=== PATIENT | male | born 1970 | race Caucasian/White ===

== ENCOUNTER 2019-08-06 11:01 | Outpatient (CLI) | payer OTHER ==
--- NOTE | 2019-08-06 14:30 | MRI ---
MRI OF THE LEFT KNEE WITHOUT CONTRAST: 08/06/19 INDICATION: History of left knee pain since August 2018; history of injury in August 2018. COMPARISON: Radiographs of the left knee dated 07/29/19. FINDINGS: There is susceptibility artifact from screws present within the distal femur proximal tibia likely re lated to a prior ACL reconstruction. The susceptibility artifact slightly limits image detail on the examination. There is a horizontal oblique tear involving the body, posterior horn and posterior root of the media l meniscus with partial medial extrusion. There is a horizontally oriented tear involving the body an d posterior junction of the lateral meniscus. The ACL graft, PCL, MCL, and LCLC appear intact. The extensor mechanism appears intact. There are small marginal osteophytes affecting all major compartments of the left knee. There is mild diffuse chondral thinning involving both femorotibial compartments without a definite full thickness defect. No definite full thickness defect is evident. Within the patellofemoral compartment, there is a near full thickness articular cartilage fissure involving the median patellar facet on image 25 of series measuring 1.4 mm. IMPRESSION: 1. Postprocedural change consistent with prior ACL reconstruction. 2. Medial and lateral meniscal tears. 3. Mild osteoarthrosis of the left knee. POS: [facility]
== END 2019-08-06 11:02 | disposition home or self-care (01) ==
LOC: SCSMRI 11:01
PROVIDERS: ATTEND Orthopaedic Surgery
DX: S83.242A Other tear of medial meniscus, current injury, left knee, initial encounter (principal); M17.12 Unilateral primary osteoarthritis, left knee; S83.282A Other tear of lateral meniscus, current injury, left knee, initial encounter; Z98.890 Other specified postprocedural states

== ENCOUNTER 2019-08-26 06:23 | Outpatient (CLI) | payer OTHER ==
[2019-08-26 16:35] LABS: #Basophils 0.1 thou/uL (0.0-0.2); #Eosinphils 0.2 thou/uL (0.0-0.7); #Lymphocytes 2.5 thou/uL (1.20-3.40); #Monocytes 0.3 thou/uL (0.11-0.59); #Neutrophils 2.9 thou/uL (1.40-6.50); %Basophils 0.9 % (0.0-1.0); %Lymphocytes 42.1 % (21.0-51.0); %Monocytes 5.5 % (0.0-10.0); %Neutrophils 48.4 % (42.0-75.0); Hemoglobin 14.3 g/dL (14.0-18.0); Mean Corpuscular HGB CONC 33.7 g/dL (32.0-36.0); Mean Corpuscular Hemoglobin 29.5 pg (27.0-31.0); Mean Corpuscular Volume 87.5 fL (78.0-98.0); Mean Platelet Volume 8.9 fL (7.4-10.4); Platelet Count 217 thou/uL (130-400); RBC Distribution Width 11.9 % (11.5-14.5); Red Blood Cell (RBC) Count 4.84 mill/uL (4.70-6.10); White Blood Cell (WBC) Count 5.9 thou/uL (4.8-10.8)
[2019-08-26 17:21] LABS: Anion Gap 12 mmol/L (10-20); BUN (Urea Nitrogen) 11 mg/dL (8.9-20.6); Calc. Creatinine Clearance 0 mL/min (70-130); Calcium 9.1 mg/dL (7.8-10.44); Carbon Dioxide 25 mmol/L (22-29); Chloride 106 mmol/L (98-107); Estimated GFR-MDRD 67; Glucose 88 mg/dL (70-105); Sodium 139 mmol/L (136-145)
[2019-08-27 13:11] LABS: SARS-CoV-2 MS2 Positive; SARS-CoV-2 N Gene Negative; SARS-CoV-2 S Gene Negative; SARS-CoV-2 orf1ab Negative
== END 2019-08-26 06:24 | disposition home or self-care (01) ==
LOC: LABBT 06:23
PROVIDERS: ATTEND Orthopaedic Surgery
DX: Z01.818 Encounter for other preprocedural examination (principal); Z11.59 Encounter for screening for other viral diseases; S83.207A Unspecified tear of unspecified meniscus, current injury, left knee, initial encounter
CPT/HCPCS: 80048; 85025; 87635; U0003

== ENCOUNTER 2019-08-30 11:22 | Day surgery (SDC) | payer OTHER ==
[2019-08-23 11:22] VITALS: BMI 33.3
[2019-08-30] MEDS ORDERED: Fentanyl 100 MCG/2 ML VIAL ONE (11:32)
[2019-08-30] MEDS ORDERED: PROPOFOL 20 ML ONE (11:56)
[2019-08-30] MEDS ORDERED: Bupivacaine PF 0.5% 30 ML VIAL ONE (12:10)
[2019-08-30] MEDS ORDERED: Lidocaine 2% w/Epinephrine 1:200K 20 ML VIAL ONE (12:10)
[2019-08-30] MEDS ORDERED: PROPOFOL 200 MG/20 ML VIAL ONE (12:38)
[2019-08-30] MEDS ORDERED: Dexamethasone 20 MG/5 ML VIAL ONE (12:38)
[2019-08-30] MEDS ORDERED: Ondansetron PF 4 MG/2 ML Vial ONE (12:38)
[2019-08-30] MEDS ORDERED: Ketorolac Tromethamine 30 MG/ML VIAL ONE (12:38)
[2019-08-30] MEDS ORDERED: Lidocaine 1% PF 5 ML VIAL ONE (12:38)
--- NOTE | 2019-08-30 21:28 | OP ---
DATE OF PROCEDURE: 08/30/2019 PREOPERATIVE DIAGNOSIS: Left knee medial and lateral meniscus tears. POSTOPERATIVE DIAGNOSIS: Left knee medial and lateral meniscus tears. PROCEDURE PERFORMED: A left knee arthroscopy, partial medial and lateral meniscectomies. PACKAGING MACHINE OPERATOR: None. ESTIMATED BLOOD LOSS: Minimal. ANESTHESIA: Patient did have a general anesthetic as well as a local knee block. He did go to recovery room in stable condition. INDICATIONS: This is a 49-year-old male, who comes in with months worth of pain, swelling, and catching in the knee. A long time ago, Mr. Gibbs underwent a left knee ACL reconstruction many, many years ago and really since that time, he has not had much problem with the knee. Again, he was found on MRI scan to have medial and lateral meniscus tears and wished to have surgery at this time. DESCRIPTION OF PROCEDURE: After all appropriate consent forms were explained and signed, Mr. Gibbs was taken back to the operative room and at this time was given general anesthetic. Once the level of anesthesia was appropriate, a tourniquet was placed on his left thigh and the left leg was placed in arthroscopic leg savage. The limb was then prepped and draped in standard surgical fashion. The limb was exsanguinated and tourniquet was taken up to 300 mmHg. Inferolateral portal was established. Scope was placed into the knee joint. A needle localization technique was then used to make a medial working portal. Diagnostic arthroscopy commenced in the notch, the ACL and PCL were probed and found to be intact. Again, his graft appeared to be in good shape. We then turned our attention to the medial compartment. Very little to no wear on the femur and the tibial plateau. Patient did have two areas of tearing in the medial meniscus. One was a small radial tear in the body and a partial meniscectomy was performed using meniscal biter shaver. The other was a flap-type tear, which consisted of about 1 cm to 1.5 cm tissue that was still attached to the root and flipped up posterior to the medial femoral condyle. Again, biter shaver was used to take this flap tear down to a stable base. Remaining meniscus was left alone. The lateral compartment was evaluated. Again, femur and tibia were overall in good condition. There was a complex tear of the posterior horn going into the body of the lateral meniscus and a partial lateral meniscectomy was performed, again using meniscal biter and shaver just to get back to a stable base. Again, remaining meniscal tissue was left alone. The gutters were swept through. No loose bodies were noted. The patellofemoral joint did show small grade 4 lesion just over a centimeter in diameter on the trochlea. No unstable chondral flaps were noted and the patella overall appeared to be in excellent condition. At this time, the scope was removed. The knee was drained and the portals were closed with a simple nylon stitch. Bulky sterile dressing was then applied. The patient was taken to recovery room in stable condition. All counts were correct at the end of the case and he did receive preoperative IV antibiotics. Job ID: [id number]
--- NOTE | 2019-08-31 18:07 | EKG ---
Test Reason : PREOP Blood Pressure : / mmHG Vent. Rate : 061 BPM Atrial Rate : 061 BPM P-R Int : 160 ms QRS Dur : 112 ms QT Int : 414 ms P-R-T Axes : 025 021 024 degrees QTc Int : 416 ms Sinus rhythm with occasional Premature ventricular complexes Otherwise normal ECG No previous ECGs available Confirmed by DR. Daryl SOTO ([id number]) on 08/31/2019 6:07:17 PM Referred By: GINO Confirmed By:DR. Daryl SOTO
== END 2019-08-30 15:15 | disposition home or self-care (01) ==
LOC: SDC 11:22
PROVIDERS: ATTEND Orthopaedic Surgery
PROC: 0SBD4ZZ Excision of Left Knee Joint, Percutaneous Endoscopic Approach (ICD-10-PCS; principal; 2019-08-30)
DX: S83.242A Other tear of medial meniscus, current injury, left knee, initial encounter (principal); S83.272A Complex tear of lateral meniscus, current injury, left knee, initial encounter; M25.862 Other specified joint disorders, left knee; M17.12 Unilateral primary osteoarthritis, left knee; J30.2 Other seasonal allergic rhinitis; Z79.899 Other long term (current) drug therapy; Z98.890 Other specified postprocedural states
CPT/HCPCS: 93005; 93010; J0690; J1100; J1885; J2001; J2405; J2704; J3010; S0020